=== PATIENT | male | born 1965 | race Caucasian/White ===

== ENCOUNTER 2019-08-26 08:40 | Inpatient (IN) | payer BC ==
[2019-08-26] VITALS (8 sets, daily range): BP systolic 102–144; BP diastolic 66–85
[~2019-08-26] VITALS: Ht 180.3 cm; Wt 102.8 kg
[2019-08-26] MEDS ORDERED: LISI-604 MT (09:36)
[2019-08-26] MEDS ORDERED: FAMO20TA8 MT (09:36)
[2019-08-26] MEDS ORDERED: CLOP75TA33 MT (09:36)
[2019-08-26] MEDS ORDERED: ATOR-2 MT (09:36)
[2019-08-26] MEDS ORDERED: COR3 MT (09:36)
[2019-08-26] MEDS ORDERED: SPIR25TA MT (09:36)
[2019-08-26] MEDS ORDERED: ASPI-1497 MT (09:36)
[2019-08-26] MEDS ORDERED: FENTANYL CITRATE/PF 50MCG/ML 2ML VIAL ONE (10:06)
[2019-08-26] MEDS ORDERED: MIDAZOLAM HCL 2 MG/2 ML VIAL ONE (10:06)
[2019-08-26] MEDS ORDERED: LIDOCAINE HCL 1% 20ML VIAL (Pyxis) INJ ONE (10:07)
[2019-08-26] MEDS ORDERED: IODIXANOL 320MG/ML 100 ML BOTTLE IV ONE (10:07)
[2019-08-26] MEDS ORDERED: IOHEXOL-300 100 ML BOTTLE ONE (10:07)
[2019-08-26 10:23] LABS: HEMATOCRIT 48.3 % (42.0-52.0); HEMOGLOBIN 16.7 g/dL (14.0-18.0); MEAN CORPUSCULAR HEMOGLOBIN 31.3 pg (28.0-32.0); MEAN CORPUSCULAR VOLUME 90.7 fL (80.0-94.0); PLATELET 190 x1000/uL (130-400); RED BLOOD CELL COUNT 5.33 mill/uL (4.7-6.1); RED CELL DISTRIBUTION WIDTH 13.8 % (11.6-14.6)
[2019-08-26 10:29] LABS: CHLORIDE 106 mEq/L (98-107)
[2019-08-26 10:43] LABS: PARTIAL THROMBOPLASTIN TIME 27.8 sec (23.4-31.0); PROTHROMBIN TIME 10.1 sec (9.6-11.0)
[2019-08-26] MEDS ORDERED: ATROPINE SULFATE 0.1MG/ML 10ML DISP.SYRIN ONE (11:11)
[2019-08-26] MEDS ORDERED: CLOPIDOGREL 75MG TABLET ONE (11:21)
[2019-08-26] MEDS ORDERED: CEFAZOLIN 1000MG PREMIX 50 ML IV ONE (11:21)
[2019-08-26] MEDS ORDERED: ASPIRIN 325MG EC TABLET PO ONE (11:22)
[2019-08-26] MEDS ORDERED: ATROPINE SULFATE 1MG/10ML SYR IV PRN (11:45)
[2019-08-26] MEDS ORDERED: ACETAMINOPHEN 325MG TABLET PO PRN (11:45)
[2019-08-26] MEDS: CLOPIDOGREL 75MG TABLET PO SCH (11:45)
[2019-08-26] MEDS: LISINOPRIL 20MG TABLET PO SCH (13:19)
[2019-08-26] MEDS: SODIUM CHLORIDE 0.9% 1,000 ML IV SCH (14:36)
[2019-08-26] MEDS ORDERED: HEPARIN SODIUM 1,000 UNIT/1ML VIAL IV ONE (15:17)
[2019-08-26] MEDS ORDERED: ATORVASTATIN CALCIUM 20MG TABLET PO SCH (21:00)
[2019-08-26] MEDS: CARVEDILOL 3.125 MG TABLET PO SCH (21:21)
[2019-08-27] VITALS (7 sets, daily range): BP systolic 94–121; BP diastolic 66–84
[2019-08-27] MEDS: SODIUM CHLORIDE 0.9% 1,000 ML IV SCH (03:13)
[2019-08-27 06:19] LABS: HEMATOCRIT. 45.4 % (42.0-52.0); HEMOGLOBIN. 15.7 g/dL (14.0-18.0); LYMPHOCYTES % 18.2 % (20.0-50.0); MEAN CORPUSCULAR HEMOGLOBIN 31.6 pg (28.0-32.0); MEAN CORPUSCULAR VOLUME 91.6 fL (80.0-94.0); MEAN PLATELET VOLUME 7.3 fl (7.4-10.4); MONOCYTES % 8.5 % (2.0-8.0); NEUTROPHILS % 71.3 % (40.0-76.0); PLATELET 177 x1000/uL (130-400); RED BLOOD CELL COUNT 4.96 mill/uL (4.7-6.1); RED CELL DISTRIBUTION WIDTH 13.5 % (11.6-14.6)
[2019-08-27 06:30] LABS: CHLORIDE 106 mEq/L (98-107)
[2019-08-27] MEDS ORDERED: INFLUENZA VIRUS VACCINE(AFLURIA) 0.5ML SYR IM ONE (08:00)
[2019-08-27] MEDS ORDERED: PNEUMOCOCCAL 23-VAL P-SAC VAC 0.5 ML IM ONE (08:00)
[2019-08-27] MEDS: LISINOPRIL 20MG TABLET PO SCH (08:02)
[2019-08-27] MEDS: CARVEDILOL 3.125 MG TABLET PO SCH (08:02)
[2019-08-27] MEDS: CLOPIDOGREL 75MG TABLET PO SCH (08:02)
[2019-08-27] MEDS ORDERED: ASPIRIN 81MG TABLET PO SCH (09:00)
== END 2019-08-27 13:04 | disposition home or self-care (01) | DRG 247 ==
LOC: CCL 08:40 → 3WST 08:41
PROVIDERS: ADMIT Internal Medicine Cardiovascular Disease; ATTEND Internal Medicine Cardiovascular Disease
PROC: 027034Z Dilation of Coronary Artery, One Artery with Drug-eluting Intraluminal Device, Percutaneous Approach (ICD-10-PCS; principal; 2019-08-26)
PROC: 4A023N7 Measurement of Cardiac Sampling and Pressure, Left Heart, Percutaneous Approach (ICD-10-PCS; 2019-08-26)
PROC: B2111ZZ Fluoroscopy of Multiple Coronary Arteries using Low Osmolar Contrast (ICD-10-PCS; 2019-08-26)
PROC: B2151ZZ Fluoroscopy of Left Heart using Low Osmolar Contrast (ICD-10-PCS; 2019-08-26)
DX: I25.10 Atherosclerotic heart disease of native coronary artery without angina pectoris (principal); E78.5 Hyperlipidemia, unspecified; I10 Essential (primary) hypertension
CPT/HCPCS: 36415; 80048; 85025; 85027; 85347; 90686; 90732; 92928; 93005; 93458; C1725; C1769; C1874; C1887; C1893; J0461; J0690; J1644; J2250; J3010; J3490; J7030; Q9967